=== PATIENT | female | born 1975 | race Caucasian/White ===

== ENCOUNTER 2017-09-14 02:04 | Emergency (ER) | payer OTHER ==
--- NOTE | 2017-09-14 02:28 | PDOC ---
History of Present Illness - General Stated Complaint: DIZZINESS,SORE THROAT,DM Time Seen by Provider: 09/14/17 02:26 History Source: Patient Exam Limitations: No Limitations - History of Present Illness Initial Comments: 09/14/17 02:28 Patient is a 42 year old female with history of DM2 and asthma presenting with flu-like symptoms for 2 days. Symptoms unrelieved with DayQuil. Patient endorses a subjective fever, chills, b/l ear pain, sore throat, cough, body aches and weakness. Patient denies sick contacts. Past History - Past Medical History Allergies/Adverse Reactions: Allergies Allergy/AdvReac Type Severity Reaction Status Date / Time No Known Drug Allergies Allergy Verified 09/14/17 02:32 Home Medications: Ambulatory Orders Metformin HCl [Metformin HCl ER] 500 mg PO BID 02/26/16 Ondansetron HCl [Zofran] 4 mg PO TID PRN #12 tablet 02/26/16 Pantoprazole Sodium [Protonix] 40 mg PO DAILY #7 tablet. 02/26/16 Levofloxacin [Levaquin] 750 mg PO DAILY #7 tab 09/14/17 Asthma: Yes Diabetes: Yes HTN: Yes Hypercholesterolemia: Yes - Surgical History Abdominal Surgery: Yes Cholecystectomy: Yes - Family Disease History Family Disease History: Diabetes: Mother - Suicide/Smoking/Psychosocial Hx Smoking Status: No Smoking History: Never smoked Have you smoked in the past 12 months: No Number of Cigarettes Smoked Daily: 0 Hx Alcohol Use: No Drug/Substance Use Hx: No Substance Use Type: None Hx Substance Use Treatment: No ED Treatment Course - LABORATORY CBC & Chemistry Diagram: 09/14/17 04:00 09/14/17 04:00 Medical Decision Making - Medical Decision Making 42 yo female with DM and flu-like symptoms ddx includes but is not limited to influenza, viral URI, PNA Evaluate with rapid influenza A.B CBC, CMP CXR 09/14/17 03:50 (-) rapid antigen test for influenza A and B 09/14/17 04:26 CBC WBC 7.0 K/mm3 (4.0-10.0) 09/14/17 04:00 RBC 4.39 M/mm3 (3.60-5.2) 09/14/17 04:00 Hgb 12.7 GM/dL (10.7-15.3) 09/14/17 04:00 Hct 37.4 % (32.4-45.2) 09/14/17 04:00 MCV 85.1 fl (80-96) 09/14/17 04:00 MCH 28.9 pg (25.7-33.7) 09/14/17 04:00 MCHC 34.0 g/dl (32.0-36.0) 09/14/17 04:00 RDW 12.7 % (11.6-15.6) 09/14/17 04:00 Plt Count 215 K/MM3 (134-434) D 09/14/17 04:00 MPV 7.4 fl (7.5-11.1) L 09/14/17 04:00 Neutrophils % 51.6 % (42.8-82.8) D 09/14/17 04:00 Lymphocytes % 37.8 % (8-40) D 09/14/17 04:00 Monocytes % 7.2 % (3.8-10.2) 09/14/17 04:00 Eosinophils % 3.0 % (0-4.5) D 09/14/17 04:00 Basophils % 0.4 % (0-2.0) 09/14/17 04:00 Reviewed, within normal limits. CMP Sodium 137 mmol/L (136-145) 09/14/17 04:00 Potassium 4.2 mmol/L (3.5-5.1) 09/14/17 04:00 Chloride 100 mmol/L (98-107) 09/14/17 04:00 Carbon Dioxide 28 mmol/L (21-32) 09/14/17 04:00 Anion Gap 9 (8-16) 09/14/17 04:00 BUN 13 mg/dL (7-18) D 09/14/17 04:00 Creatinine 0.5 mg/dL (0.55-1.02) L D 09/14/17 04:00 Creat Clearance w eGFR > 60 (>60) 09/14/17 04:00 Random Glucose 270 mg/dL (74-106) H D 09/14/17 04:00 Calcium 7.9 mg/dL (8.5-10.1) L 09/14/17 04:00 Total Bilirubin 0.3 mg/dL (0.2-1.0) 09/14/17 04:00 AST 12 U/L (15-37) L D 09/14/17 04:00 ALT 24 U/L (12-78) 09/14/17 04:00 Alkaline Phosphatase 119 U/L (45-117) H 09/14/17 04:00 Total Protein 6.4 g/dl (6.4-8.2) 09/14/17 04:00 Albumin 3.0 g/dl (3.4-5.0) L 09/14/17 04:00 Serum , Qual Negative 09/14/17 04:00 Reviewed CXR concerning for RLL PNA when compared with previous study. 09/14/17 05:13 Patient afebrile, negative for influenza and without leukocytosis but CXR showing increased opacification versus previous study concerning for possible CAP. Treat with 1x dose abx in ED with continuation of abx at home. *DC/Admit/Observation/Transfer Diagnosis at time of Disposition: Community acquired pneumonia Qualifiers: Laterality: right Lung location: lower lobe of lung Qualified Code(s): J18.1 - Lobar pneumonia, unspecified organism - Discharge Dispostion Admit: No - Prescriptions Prescriptions: Levofloxacin [Levaquin] 750 mg PO DAILY #7 tab - Referrals Referrals: Aaron Larose [Primary Care Provider] - - Patient Instructions Printed Discharge Instructions: DI for Pneumonia -- Adult Additional Instructions: A prescription for antibiotics has been sent to your pharmacy Starting tomorrow, take one tablet by mouth every day until you have finished all of your medication You need to finish your medication even if you start feeling better Call tomorrow and make an appointment with your primary doctor Return to the emergency room if you have difficulty breathing, develop a high fever or you develop any new of concerning symptoms. Print Language: BULGARIAN
[2017-09-14 02:38] VITALS: BP 105/69; PULSE 89; TEMP 98.3; BMI 37.2
[2017-09-14] MEDS ORDERED: IBUPROFEN 600 MG TABLET (FP) PO ONE (02:56)
[2017-09-14] MEDS ORDERED: ACETAMINOPHEN 325 MG TABLET (FP) PO ONE (03:38)
[2017-09-14] MEDS ORDERED: SODIUM CHLORIDE 0.9% 1000 ML INFUS.BAG IV ONE (03:38)
[2017-09-14] MEDS ORDERED: ALBUTEROL SO4 2.5/IPRATROPIUM 0.5 INH SOL 3 ML VIAL.NEB. NEB ONE ×2 (03:38→03:47)
--- NOTE | 2017-09-14 03:39 | PDOC ---
Attending Attestation - HPI HPI: 09/14/17 04:13 42 yo F with a significant past medical history of diabetes and asthma, and presents to the emergency department with sore throat, bilateral ear pain, body aches and weakness for 2 days. She reports associated coughing and notes she spit out some blood while coughing. She took Dayquil with no significant relief. No F/C. No N/V/D. No SOB or DEL TORO. - Physicial Exam PE: 09/14/17 04:13 GENERAL: Awake, alert, and fully oriented. (+) Ill-appearing. (+) Obese HEAD: No signs of trauma EYES: PERRLA, EOMI, sclera anicteric, conjunctiva clear ENT: Auricles normal inspection, hearing grossly normal, nares patent, (+) Posterior pharynx mildly erythematous without exudates. Moist mucosa. (+) Wet rancorous cough. NECK: Normal ROM, supple, no lymphadenopathy, JVD, or masses LUNGS: (+) Lungs are diminished b/l. No wheezes, and no crackles HEART: Regular rate and rhythm, normal S1 and S2, no murmurs, rubs or gallops ABDOMEN: Soft, nontender, normoactive bowel sounds. No guarding, no rebound. No masses EXTREMITIES: Normal range of motion, no edema. No clubbing or cyanosis. No cords, erythema, or tenderness NEUROLOGICAL: Cranial nerves II through XII grossly intact. Normal speech, normal gait SKIN: Warm, Dry, normal turgor, no rashes or lesions noted. <Lisa Beasley - Last Filed: 09/14/17 04:41> - Resident Resident Name: Kelvin Sorenson - ED Attending Attestation I have performed the following: I have examined & evaluated the patient, The case was reviewed & discussed with the resident, I agree w/resident's findings & plan, Exceptions are as noted - Medical Decision Making 09/14/17 03:39 I, Dr. Sandy Ruiz, DO, attest that this document has been prepared under my direction and personally reviewed by me in its entirety. I further attest, that it accurately reflects all work, treatment, procedures and medical decision -making performed by me. 09/14/17 04:44 a/p: 42yo female with generalized body aches, cough, congestion and 2 episodes of hemoptysis -labs -influenza swab -cxr -neb -ivf hydration -reassess 09/14/17 05:30 pt feeling better after neb. discussed lab and imaging results. pt with RLL infiltrate on xray. Will start abx. Levaquin and then d/c to home. Pt states she understands all instructions. Pt states she will follow up with her PMD. Answered all questions. pt stable for d/c to home. <Sandy Ruiz - Last Filed: 09/14/17 05:36> Heart Score/ECG Review - ECG Intrepretation Comment:: 09/14/17 05:36 sinus at 89, nl axis, nl interval, no acute st/t wave findings <Sandy Ruiz - Last Filed: 09/14/17 05:36>
[2017-09-14] MEDS ORDERED: ACETAMINOPHEN 325 MG TABLET (FP) ONE (03:47)
[2017-09-14 04:12] LABS: BASOPHIL 0.4 % (0-2.0); MCH 28.9 pg (25.7-33.7); MEAN CELL VOLUME 85.1 fl (80-96); MEAN PLT VOLUME 7.4 fl (7.5-11.1); NEUTROPHILS 51.6 % (42.8-82.8); PLATELET COUNT 215 K/MM3 (134-434); RDW 12.7 % (11.6-15.6)
[2017-09-14 04:36] LABS: ALK PHOS 119 U/L (45-117); ANION GAP 9 (8-16); BILIRUBIN,TOTAL 0.3 mg/dL (0.2-1.0); CALCIUM 7.9 mg/dL (8.5-10.1); CO2 28 mmol/L (21-32); CREATININE 0.5 mg/dL (0.55-1.02); GLUCOSE,RANDOM 270 mg/dL (74-106); SGOT/AST 12 U/L (15-37); SGPT/ALT 24 U/L (12-78); TOT PROT 6.4 g/dl (6.4-8.2)
[2017-09-14] MEDS ORDERED: LEVOFLOXACIN 750 MG IVPB 150 ML IVPB ONE ×2 (04:58→05:18)
--- NOTE | 2017-09-16 13:00 | EKG ---
Test Reason : Blood Pressure : / mmHG Vent. Rate : 089 BPM Atrial Rate : 089 BPM P-R Int : 156 ms QRS Dur : 084 ms QT Int : 374 ms P-R-T Axes : 035 016 026 degrees QTc Int : 455 ms NORMAL SINUS RHYTHM NORMAL ECG WHEN COMPARED WITH ECG OF 26-FEB-2016 08:59, NO SIGNIFICANT CHANGE WAS FOUND Confirmed by PAULA LEAL MD ([id number]) on 09/16/2017 1:00:28 PM Referred By: Confirmed By:PAULA LEAL MD
== END 2017-09-14 06:14 | disposition home or self-care (01) ==
LOC: JER 02:04
PROC: 3E0F7GC Introduction of Other Therapeutic Substance into Respiratory Tract, Via Natural or Artificial Opening (ICD-10-PCS; principal; 2017-09-14)
PROC: 3E03329 Introduction of Other Anti-infective into Peripheral Vein, Percutaneous Approach (ICD-10-PCS; 2017-09-14)
DX: J18.8 Other pneumonia, unspecified organism (principal)
CPT/HCPCS: 36415; 71010-TC; 80053; 84703; 85025; 87804; 93005; 93010; 94640; 96365; 99281-25

== ENCOUNTER 2017-12-01 15:54 | Emergency (ER) | payer OTHER ==
[2017-12-01 16:03] VITALS: BP 138/113; PULSE 136; TEMP 100.2; BMI 47.8
[2017-12-01] MEDS ORDERED: SODIUM CHLORIDE 1,000 ML IV STA (16:05)
[2017-12-01] MEDS ORDERED: ACETAMINOPHEN 325 MG TABLET (FP) PO ONE (16:07)
--- NOTE | 2017-12-01 16:07 | PDOC ---
Rapid Medical Evaluation Time Seen by Provider: 12/01/17 16:00 Medical Evaluation: Allergies Allergy/AdvReac Type Severity Reaction Status Date / Time No Known Drug Allergies Allergy Verified 09/14/17 02:32 I have performed a brief in-person evaluation of this patient. The patient presents with a chief complaint of: shortness of breath, fever ( max 103), productive cough x 3 days Pertinent physical exam findings: non toxic, but ill appearing. Dry cough I have ordered the following: labs, UA/culture/hcg, CXR, influenza Pt has not given Urine; ordered serum . The patient will proceed to the ED for further evaluation. +influenza A - ordered Tamiflu Provided patient with a large pitcher of water Glucose 326 - will need to be seen in the main ER. Discharge Disposition - Referrals Referrals: Aaron Larose [Primary Care Provider] - - Patient Instructions - Post Discharge Activity
[2017-12-01 16:38] LABS: BASO % 0.5 % (0-2.0); EOS % 0.6 % (0-4.5); HEMATOCRIT 44.3 % (32.4-45.2); HEMOGLOBIN 14.8 GM/dL (10.7-15.3); LYMPH % 27.8 % (8-40); MCH 28.9 pg (25.7-33.7); MCHC 33.4 g/dl (32.0-36.0); MEAN CELL VOLUME 86.3 fl (80-96); MEAN PLT VOLUME 7.8 fl (7.5-11.1); MONO % 9.2 % (3.8-10.2); NEUT % 61.9 % (42.8-82.8); PLATELET COUNT 269 K/MM3 (134-434); RBC 5.13 M/mm3 (3.60-5.2); RDW 12.4 % (11.6-15.6); WHITE BLOOD COUNT 7.6 K/mm3 (4.0-10.0)
[2017-12-01 17:02] LABS: INR 1.03 (0.82-1.09); PROTHROMBIN TIME (PATIENT) 11.6 SEC (9.98-11.88)
[2017-12-01 17:04] LABS: ACTIVATED PTT 25.4 SECONDS (26.9-34.4)
[2017-12-01 17:19] LABS: ALBUMIN 3.5 g/dl (3.4-5.0); ANION GAP 10 (8-16); BLOOD UREA NITROGEN 16 mg/dL (7-18); CALCIUM 8.8 mg/dL (8.5-10.1); CHLORIDE 95 mmol/L (98-107); CO2 25 mmol/L (21-32); POTASSIUM 3.7 mmol/L (3.5-5.1); SODIUM 130 mmol/L (136-145)
[2017-12-01 17:24] LABS: ALK PHOS 155 U/L (45-117); BILIRUBIN,TOTAL 0.4 mg/dL (0.2-1.0); CREATININE 0.7 mg/dL (0.55-1.02); SGOT/AST 24 U/L (15-37); SGPT/ALT 35 U/L (12-78); TOT PROT 7.8 g/dl (6.4-8.2)
[2017-12-01] MEDS ORDERED: IBUPROFEN 600 MG TABLET (FP) PO ONE (17:24)
[2017-12-01] MEDS ORDERED: OSELTAMIVIR PHOSPHATE 75 MG CAPSULE PO ONE (17:26)
[2017-12-01 17:51] LABS: GLUCOSE,RANDOM 326 mg/dL (74-106)
[2017-12-01 18:23] LABS: URINE APPEARANCE SLCLOUDY; URINE BILIRUBIN NEGATIVE (NEGATIVE); URINE BLOOD 3+ (NEGATIVE); URINE COLOR YELLOW; URINE GLUCOSE (UA) 3+ (NEGATIVE); URINE KETONE NEGATIVE (NEGATIVE); URINE LEUK ESTERASE NEGATIVE (NEGATIVE); URINE NITRITE NEGATIVE (NEGATIVE); URINE UROBILINOGEN NEGATIVE mg/dL (0.2-1.0)
[2017-12-01 18:31] LABS: URINE PROTEIN 2+ (NEGATIVE)
[2017-12-01 20:31] LABS: EPI CELLS RARE /HPF (FEW); URINE BACTERIA MANY /hpf (NONE SEEN); URINE HYALINE CAST 127 /lpf; URINE MUCUS MANY
--- NOTE | 2017-12-04 07:33 | PDOC ---
Patient Follow-up (Call Back) - Post ED Follow - Up Disposition at time of original discharge: LEFT BEFORE [facility] FIGUER[facility] Reason for Call Back: Abnwl. Microbiology (Patient's urine shows patient's urine cultures preliminary report shows non-lactose fermenting GNB. Patient was here with complaints of cough, fever and tested positive for influenza A. Patient had additional labs done but left before medical evaluation and was not treated for the urinary tract infection. Patient also with noted elevated glucose, lactic acid 2.4, and mild hyponatremia. I explained to patient she needs to drink plenty of fluids take her diabetic medication and start Macrobid. Patient states symptoms have not worsened including fever, difficulty breathing, chest pain or change in urine output. Patient states feeling slightly better each day.)
== END 2017-12-01 20:04 | disposition left against medical advice (07) ==
LOC: JER 15:54
DX: Z53.21 Procedure and treatment not carried out due to patient leaving prior to being seen by health care provider (principal)
CPT/HCPCS: 36415; 80053; 81003; 81015; 82550; 83605; 84484; 84703; 85025; 85610; 85730; 86850; 86900; 86901; 87040; 87086; 87186; 87804; 99281-25

== ENCOUNTER 2018-03-17 19:56 | Emergency (ER) | payer OTHER ==
--- NOTE | 2018-03-17 20:06 | PDOC ---
Rapid Medical Evaluation Time Seen by Provider: 03/17/18 20:04 Medical Evaluation: Allergies Allergy/AdvReac Type Severity Reaction Status Date / Time No Known Drug Allergies Allergy Verified 12/01/17 16:03 03/17/18 20:04 I have performed a brief in-person evaluation of this patient. The patient presents with a chief complaint of: dizziness, sore throat, ear pain , +cough/runny nose, fever 2 days ago Pertinent physical exam findings: lungs ctab, no tonsillary erythema/exudate, tacyh to 122 I have ordered the following: nothing The patient will proceed to the ED for further evaluation. Discharge Disposition - Diagnosis Sore throat - Referrals - Patient Instructions - Post Discharge Activity
[2018-03-17 20:09] VITALS: BP 131/58; PULSE 120; TEMP 98.5; BMI 44.6
[2018-03-17] MEDS ORDERED: ONDANSETRON *ODT* 4 MG TABLET SL ONE (20:28)
--- NOTE | 2018-03-17 20:28 | PDOC ---
History of Present Illness - General History Source: Patient <ArmenabelLuis - Last Filed: 03/17/18 20:31> - General History Source: Patient Exam Limitations: No Limitations - History of Present Illness Initial Comments: 03/17/18 20:57 Patient is a 42 year old female with a significant past medical history of HTN, Diabetes, high cholesterol, who presents to the ED with complaints of left ear and throat pain that began 3 days ago. Patient reports experiencing gradual left ear pain as well as associated sore throat that she states has become unbearable. She reports not taking any medications for the pain but states she is unable to take it and became worried, prompting her to come into the ED for further evaluation. Denies chest pain, Sob. Denies nausea, vomiting. Denies contact with sick individuals, out of state travelling. Denies any other symptoms. Allergies: none Social history: No smoking. No alcohol. No illicit drugs. Surgical history: None PMD: dr. German Thacker. <Randy Vazquez - Last Filed: 03/17/18 20:57> - General Chief Complaint: Sore Throat Stated Complaint: DIZZINESS Time Seen by Provider: 03/17/18 20:04 Past History - Past Medical History Asthma: Yes COPD: No Diabetes: Yes HTN: Yes Hypercholesterolemia: Yes - Surgical History Abdominal Surgery: Yes Cholecystectomy: Yes - Family Disease History Family Disease History: Diabetes: Mother - Suicide/Smoking/Psychosocial Hx Smoking Status: No Smoking History: Never smoked Have you smoked in the past 12 months: No Number of Cigarettes Smoked Daily: 0 Hx Alcohol Use: No Drug/Substance Use Hx: No Substance Use Type: None Hx Substance Use Treatment: No <Luis Hatfield - Last Filed: 03/17/18 20:31> <Randy Vazquez - Last Filed: 03/17/18 20:57> - Past Medical History Allergies/Adverse Reactions: Allergies Allergy/AdvReac Type Severity Reaction Status Date / Time No Known Drug Allergies Allergy Verified 03/17/18 20:51 Home Medications: Ambulatory Orders Metformin HCl [Metformin HCl ER] 500 mg PO BID 02/26/16 Ondansetron [Zofran *Odt*] 4 mg SL TID #30 od.tablet 03/17/18 Pseudoephedrine HCl [Sudafed] 30 mg PO Q6H #20 tablet 03/17/18 Sulfamethoxazole/Trimethoprim [Bactrim *Ds*] 1 tab PO BID #14 tablet 03/17/18 Review of Systems - Review of Systems Able to Perform ROS?: Yes Comments:: 03/17/18 20:57 CONSTITUTIONAL: Absent: fever, no chills, no fatigue EYES: Absent: visual changes ENT: +Left ear pain. +Sore throat. Absent: CARDIOVASCULAR: Absent: chest pain, no palpitations RESPIRATORY: Absent: cough, no SOB GI: Absent: abdominal pain, no nausea, no vomiting, no constipation, no diarrhea GENITOURINARY: Absent: dysuria, no frequency, no hematuria MUSCULOSKELETAL: Absent: back pain, no arthralgia, no myalgia SKIN: Absent: rash <Randy Vazquez - Last Filed: 03/17/18 20:57> *Physical Exam - Vital Signs Last Vital Signs Temp Pulse Resp BP Pulse Ox 98.5 F 120 H 18 131/58 96 03/17/18 20:07 03/17/18 20:07 03/17/18 20:07 03/17/18 20:07 03/17/18 20:07 <Luis Hatfield - Last Filed: 03/17/18 20:31> - Vital Signs Last Vital Signs Temp Pulse Resp BP Pulse Ox 98.5 F 120 H 18 131/58 96 03/17/18 20:07 03/17/18 20:07 03/17/18 20:07 03/17/18 20:07 03/17/18 20:07 - Physical Exam Comments: 03/17/18 20:57 GENERAL: Well-appearing, well-nourished. No apparent distress. HEENT: +Bulging left T.M Normocephalic, atraumatic. PERRL, EOM intact. CARDIOVASCULAR: Normal S1, S2. Regular rate and rhythm. PULMONARY: Clear to auscultation bilaterally. ABDOMEN: +Morbid Obese. Soft, non-distended, non-tender. EXTREMITIES: Normal ROM in all four extremities. No gross deformities. SKIN: Warm, dry. No rash NEUROLOGICAL: No focal neurological deficits. <Randy Vazquez - Last Filed: 03/17/18 20:57> Medical Decision Making - Medical Decision Making 03/17/18 20:34 Dr. Hatfield: The scribe's documentation has been prepared under my direction and personally reviewed by me in its entirery. I confirm that the note above accurately reflects all work, treatment, procedures, and medical decision making performed by me. <Luis Hatfield - Last Filed: 03/17/18 20:31> *DC/Admit/Observation/Transfer - Discharge Dispostion Admit: No <Luis Hatfield - Last Filed: 03/17/18 20:31> - Attestations Scribe Attestion: 03/17/18 20:57 Documentation prepared by Randy Vazquez, acting as er medical technician for Luis Hatfield MD/DO. <Randy Vazquez - Last Filed: 03/17/18 20:57> Diagnosis at time of Disposition: Sore throat, Ear pain, left - Discharge Dispostion Disposition: HOME Condition at time of disposition: Stable - Prescriptions Prescriptions: Ondansetron [Zofran *Odt*] 4 mg SL TID #30 od.tablet Pseudoephedrine HCl [Sudafed] 30 mg PO Q6H #20 tablet Sulfamethoxazole/Trimethoprim [Bactrim *Ds*] 1 tab PO BID #14 tablet - Referrals Referrals: German Thacker MD [Primary Care Provider] - Charlie Sequeira MD [Staff Physician] - - Patient Instructions Printed Discharge Instructions: Sore Throat, DI for Ear Pain-Adult Additional Instructions: take medication as directed. Drink plenty of fluids. Follow up with your doctor as soon as possible if symptoms don't improve - Post Discharge Activity
[2018-03-17] MEDS ORDERED: PSEUDOEPHEDRINE HCL 30 MG TABLET PO STA (20:29)
[2018-03-17] MEDS ORDERED: SULFAMETHOXAZOLE/TRIMETHOPRIM 800MG/160MG D.S. TABLET PO ONE (20:29)
[2018-03-17] MEDS ORDERED: SULFAMETHOXAZOLE/TRIMETHOPRIM 800MG/160MG D.S. TABLET ONE (20:55)
[2018-03-17] MEDS ORDERED: ONDANSETRON *ODT* 4 MG TABLET ONE (20:55)
[2018-03-17] MEDS ORDERED: PSEUDOEPHEDRINE HCL 60 MG TABLET ONE (20:55)
== END 2018-03-17 21:04 | disposition home or self-care (01) ==
LOC: JER 19:56
DX: J02.9 Acute pharyngitis, unspecified (principal); H92.02 Otalgia, left ear; R42 Dizziness and giddiness; R00.0 Tachycardia, unspecified; I10 Essential (primary) hypertension; E11.9 Type 2 diabetes mellitus without complications; Z79.84 Long term (current) use of oral hypoglycemic drugs; E78.00 Pure hypercholesterolemia, unspecified; J45.909 Unspecified asthma, uncomplicated; Z90.49 Acquired absence of other specified parts of digestive tract
CPT/HCPCS: 99281-25; Q0162

== ENCOUNTER 2018-08-17 12:10 | Emergency (ER) | payer OTHER ==
[2018-08-17 12:18] VITALS: BP 112/70; PULSE 106; TEMP 99.7; BMI 47.8
--- NOTE | 2018-08-17 13:18 | PDOC ---
History of Present Illness - General Chief Complaint: Cold Symptoms Stated Complaint: COLD SYMPTOMS Time Seen by Provider: 08/17/18 13:09 History Source: Patient Exam Limitations: No Limitations - History of Present Illness Initial Comments: 08/17/18 13:13 43 yr female with sore throat and cough for 2 days no fever, no chills no shortness of breath. Pt with history of asthma, obesity, DM, high cholesterol. Past History - Past Medical History Allergies/Adverse Reactions: Allergies Allergy/AdvReac Type Severity Reaction Status Date / Time No Known Drug Allergies Allergy Verified 08/17/18 12:18 Home Medications: Ambulatory Orders Sitagliptin Phos/Metformin HCl [Janumet 50-1,000 mg Tablet] 1 each PO ASDIR 11/15 Guaifenesin [Robitussin -] 100 mg PO Q4H PRN #210 ml 08/17/18 Asthma: Yes COPD: No Diabetes: Yes HTN: Yes Hypercholesterolemia: Yes - Surgical History Abdominal Surgery: Yes Cholecystectomy: Yes - Family Disease History Family Disease History: Diabetes: Mother - Suicide/Smoking/Psychosocial Hx Smoking Status: No Smoking History: Never smoked Have you smoked in the past 12 months: No Number of Cigarettes Smoked Daily: 0 Hx Alcohol Use: No Drug/Substance Use Hx: No Substance Use Type: None Hx Substance Use Treatment: No *Physical Exam - Vital Signs Last Vital Signs Temp Pulse Resp BP Pulse Ox 99.7 F H 106 H 18 112/70 96 08/17/18 12:16 08/17/18 12:16 08/17/18 12:16 08/17/18 12:16 08/17/18 12:16 - Physical Exam General Appearance: Yes: Nourished, Appropriately Dressed HEENT: positive: EOMI, ALISIA, TMs Normal, Pharynx Normal Neck: positive: Supple. negative: Lymphadenopathy (R), Lymphadenopathy (L) Respiratory/Chest: positive: Lungs Clear, Normal Breath Sounds Cardiovascular: positive: Regular Rhythm, Regular Rate Musculoskeletal: positive: Normal Inspection Extremity: positive: Normal Capillary Refill, Normal Inspection, Normal Range of Motion Integumentary: positive: Normal Color, Dry, Warm Neurologic: positive: after school caregiver II-XII NML intact, Fully Oriented, Alert, Normal Mood/ Affect, Normal Response, Motor Strength 5/5 Medical Decision Making - Medical Decision Making 08/17/18 13:14 cc: cough sore throat vitals stable no resp distress will check for strep non smoker, tolerating fluids well. 08/17/18 13:56 08/17/18 13:56 strep is negative will dc home with supportive care dc inst discussed, pt asking for robitussin prescription I have discussed to use honey with tea and lemon, salt water gargles , over the counter throat lozengers for sore throat pt understands the treatment plan all questions asked and answered 08/17/18 14:34 *DC/Admit/Observation/Transfer Diagnosis at time of Disposition: Viral URI with cough - Discharge Dispostion Disposition: HOME Condition at time of disposition: Good - Prescriptions Prescriptions: Guaifenesin [Robitussin -] 100 mg PO Q4H PRN #210 ml PRN Reason: Cough - Referrals Referrals: Anuj Shukla RES [Primary Care Provider] - - Patient Instructions Additional Instructions: drink pleanty of fluids increase vitamin c to help immune system (Sarika C over the counter) take tylenol 650mg every 4-6hrs for fever or pain - Post Discharge Activity
== END 2018-08-17 14:42 | disposition home or self-care (01) ==
LOC: JERFT 12:10
DX: J06.9 Acute upper respiratory infection, unspecified (principal); R05 Cough; B97.89 Other viral agents as the cause of diseases classified elsewhere; E78.00 Pure hypercholesterolemia, unspecified; J45.909 Unspecified asthma, uncomplicated; E11.9 Type 2 diabetes mellitus without complications; I10 Essential (primary) hypertension
CPT/HCPCS: 87070; 87430; 99281-25

== ENCOUNTER 2021-04-12 11:56 | Emergency (ER) | payer OTHER ==
[2021-04-12 12:16] VITALS: BP 114/71; PULSE 80; TEMP 99.1; BMI 42.5
[2021-04-12] MEDS ORDERED: IBUPROFEN 400 MG TABLET (FP) PO ONE ×2 (12:27→12:31)
== END 2021-04-12 13:40 | disposition home or self-care (01) ==
LOC: JER 11:56 → JERFT 11:56
DX: H60.502 Unspecified acute noninfective otitis externa, left ear (principal)
CPT/HCPCS: 87880; 99283-25

== ENCOUNTER 2022-06-17 06:19 | Emergency (ER) | payer OTHER ==
[2022-06-17 07:41] VITALS: BMI 45.1
[2022-06-17] MEDS ORDERED: IBUPROFEN 600 MG TABLET (FP) PO ONE ×2 (07:59→08:23)
[2022-06-17 09:42] VITALS: BP 147/67; PULSE 78; TEMP 98.3
== END 2022-06-17 10:44 | disposition home or self-care (01) ==
LOC: JER 06:19
DX: H60.92 Unspecified otitis externa, left ear (principal); M25.512 Pain in left shoulder
CPT/HCPCS: 73030-TC-LT-FY; 99283-25

== ENCOUNTER 2022-09-09 04:05 | Emergency (ER) | payer OTHER ==
[2022-09-09 10:36] LABS: EPI CELLS >36 /uL (0-25.1); HYALINE CASTS 4 /uL (0-3.1); URINE APPEARANCE CLOUDY; URINE BACTERIA >9,000 /uL (0-1359); URINE BILIRUBIN NEGATIVE (NEGATIVE); URINE COLOR YELLOW; URINE GLUCOSE (UA) NEGATIVE (NEGATIVE); URINE KETONE TRACE (NEGATIVE); URINE LEUK ESTERASE NEGATIVE (NEGATIVE); URINE NITRITE POSITIVE (NEGATIVE); URINE PROTEIN TRACE (NEGATIVE); URINE RBC 46 /uL (0-23.9); URINE UROBILINOGEN 0.2 mg/dL (0.2-1.0); URINE WBC 28 /uL (0-25.8)
[2022-09-09 10:37] LABS: HCG,QUALITATIVE URINE Negative
[2022-09-09 10:49] LABS: THROAT:GRP A STREP NOT DETECTED (NOTDETECTED)
== END 2022-09-09 07:40 | disposition left against medical advice (07) ==
LOC: JER 04:05
DX: J06.9 Acute upper respiratory infection, unspecified (principal)
CPT/HCPCS: 0241U-QW; 81003; 84703; 87070; 87086; 87651; 99283-25

== ENCOUNTER 2024-01-10 12:17 | Emergency (ER) | payer OTHER ==
[2024-01-10 12:42] VITALS: BP 114/52; PULSE 89; RESP 18; TEMP 99; BMI 44.2
[2024-01-10] MEDS ORDERED: METHOCARBAMOL 500 MG TABLET ONE (14:52)
[2024-01-10] MEDS ORDERED: KETOROLAC TROMETHAMINE 15 MG/ML VIAL ONE (14:53)
[2024-01-10] MEDS ORDERED: LIDOCAINE 4% PATCH TP ONE (14:53)
[2024-01-10] MEDS: KETOROLAC TROMETHAMINE 15 MG/ML VIAL IM ONE (15:02)
[2024-01-10] MEDS: LIDOCAINE 5% TOPICAL PATCH TP ONE (15:02)
[2024-01-10] MEDS: METHOCARBAMOL 500 MG TABLET PO ONE (15:02)
[2024-01-10] MEDS ORDERED: LIDOCAINE PATCH REMOVAL MC SCH (22:00)
== END 2024-01-10 15:08 | disposition home or self-care (01) ==
LOC: JER 12:17
PROC: 3E0233Z Introduction of Anti-inflammatory into Muscle, Percutaneous Approach (ICD-10-PCS; principal; 2024-01-10)
DX: M54.50 Low back pain, unspecified (principal); W01.0XXA Fall on same level from slipping, tripping and stumbling without subsequent striking against object, initial encounter
CPT/HCPCS: 96372; 99284-25

== ENCOUNTER 2024-01-14 11:17 | Emergency (ER) | payer OTHER ==
[2024-01-14 11:28] VITALS: BP 100/53; PULSE 97; RESP 18; TEMP 98; BMI 42.5
[2024-01-14] MEDS ORDERED: KETOROLAC TROMETHAMINE 30 MG/1 ML VIAL ONE (15:26)
[2024-01-14] MEDS: KETOROLAC TROMETHAMINE 15 MG/ML VIAL IVPUSH ONE (15:32)
== END 2024-01-14 16:00 | disposition left against medical advice (07) ==
LOC: JER 11:17
PROC: 3E0333Z Introduction of Anti-inflammatory into Peripheral Vein, Percutaneous Approach (ICD-10-PCS; principal; 2024-01-14)
DX: S06.0XAA Concussion with loss of consciousness status unknown, initial encounter (principal); R51.9 Headache, unspecified; M54.2 Cervicalgia; M54.9 Dorsalgia, unspecified; W01.198A Fall on same level from slipping, tripping and stumbling with subsequent striking against other object, initial encounter
CPT/HCPCS: 70450-TC; 72125-TC; 96374; 99284-25

== ENCOUNTER 2024-10-03 07:20 | Day surgery (SDC) | payer OTHER ==
[2024-09-29 12:43] VITALS: BMI 42.5
[2024-10-03 09:07] VITALS: RESP 14; TEMP 97
[2024-10-03 10:15] VITALS: BP 107/75; PULSE 84
== END 2024-10-03 10:10 | disposition home or self-care (01) ==
LOC: FASU-ENDO 07:20
PROVIDERS: ATTEND Internal Medicine Gastroenterology
PROC: 0DJD8ZZ Inspection of Lower Intestinal Tract, Via Natural or Artificial Opening Endoscopic (ICD-10-PCS; principal; 2024-10-03 08:29)
DX: Z12.11 Encounter for screening for malignant neoplasm of colon (principal); K57.30 Diverticulosis of large intestine without perforation or abscess without bleeding; K64.4 Residual hemorrhoidal skin tags
CPT/HCPCS: 81025; 82962

== ENCOUNTER 2025-08-11 11:35 | Emergency (ER) | payer OTHER ==
[2025-08-11 11:49] VITALS: TEMP 98.8; BMI 42.1
[2025-08-11] MEDS: SODIUM CHLORIDE 0.9% 500 ML INFUS.BAG IV ONE (12:19)
[2025-08-11 12:36] LABS: ABSOLUTE IMMATURE GRANULOCYTES 0.02 x10^3/uL (0.0-0.031); BASOPHILS # 0.02 x10^3/uL (0.01-0.08); EOSINOPHIL % 4.1 % (0.7-5.8); EOSINOPHILS # 0.29 x10^3/uL (0.04-0.36); MCHC 32.0 g/dl (32.2-35.5); MEAN CELL VOLUME 89.1 fl (79.4-94.8); MEAN PLT VOLUME 9.2 fl (9.4-12.3); MONOCYTE # 0.35 x10^3/uL (0.24-0.86); MONOCYTE % 4.9 % (4.7-12.5); RDW 11.9 % (12.2-17.1)
[2025-08-11 12:59] LABS: GLUCOSE,RANDOM 152.0 mg/dL (74-106)
[2025-08-11 13:00] LABS: TOT PROT 7.0 g/dl (6.4-8.2)
[2025-08-11 13:01] LABS: CO2 21.0 mmol/L (21-32)
[2025-08-11 13:02] LABS: ALK PHOS 104.0 U/L (40-150)
[2025-08-11 13:05] LABS: CREATININE 0.65 mg/dL (0.55-1.3); SGOT/AST 19.0 U/L (5-34); SGPT/ALT 14.0 U/L (0-55)
[2025-08-11 13:32] VITALS: BP 104/58; PULSE 87; RESP 16
[2025-08-11 14:09] LABS: URINE APPEARANCE CLEAR; URINE BILIRUBIN NEGATIVE (NEGATIVE); URINE COLOR YELLOW; URINE GLUCOSE (UA) NEGATIVE (NEGATIVE); URINE KETONE NEGATIVE (NEGATIVE); URINE LEUK ESTERASE NEGATIVE (NEGATIVE); URINE NITRITE NEGATIVE (NEGATIVE); URINE PROTEIN NEGATIVE (NEGATIVE); URINE UROBILINOGEN 0.2 mg/dL (0.2-1.0)
[2025-08-11 15:52] LABS: HIV INTERPRETATION NEGATIVE (NEGATIVE)
[2025-08-11 16:15] LABS: HCV DIAGNOSTIC IN-HOUSE W/RFLX NON-REACTIVE (NONREACTIVE)
== END 2025-08-11 14:45 | disposition home or self-care (01) ==
LOC: JER 11:35
PROC: 3E033GC Introduction of Other Therapeutic Substance into Peripheral Vein, Percutaneous Approach (ICD-10-PCS; principal; 2025-08-11)
DX: L50.0 Allergic urticaria (principal); L29.9 Pruritus, unspecified; R21 Rash and other nonspecific skin eruption; T55.0X1A Toxic effect of soaps, accidental (unintentional), initial encounter; T78.1XXA Other adverse food reactions, not elsewhere classified, initial encounter
CPT/HCPCS: 36415; 80053; 81003; 85025; 86803; 87389; 96374; 99284-25